=== PATIENT | female | born 1950 ===

== ENCOUNTER 2018-08-26 07:15 | Inpatient (IN) | payer OTHER, MEDICAID ==
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
[~2018-08-26 07:15] MED LIST: TRANEXAMIC ACID 1,000 MG in NS 100 ML IV ONE
[2018-08-26] MEDS ORDERED: ceFAZolin 2 GM/DEXTROSE 100 ML IV ONE (07:34)
[2018-08-26] MEDS ORDERED: fentaNYL 50 MCG in SYRINGE INTRATHECAL 1 SYR IT ONE (07:34)
[2018-08-26] MEDS ORDERED: GABAPENTIN 300 MG CAP PO ONE (07:34)
[2018-08-26] MEDS ORDERED: ACETAMINOPHEN 500 MG TAB PO ONE (07:34)
[2018-08-26] MEDS ORDERED: morphINE PF 0.2 MG in SYRINGE INTRATHECAL 1 SYR IT ONE (07:34)
[2018-08-26] MEDS ORDERED: LR 1,000 ML IV ONE (07:39)
[2018-08-26 08:37] LABS: PLATELET COUNT 154 10^3/uL (150-400)
[2018-08-26] MEDS ORDERED: CHLORHEXIDINE GLUC HIBICLENS 118 ML BTL TP ONE (09:26)
[2018-08-26] MEDS ORDERED: BACITRACIN 50,000 UNITS/10 ML SYR IRR ONE (09:27)
[2018-08-26] MEDS ORDERED: EPINEPHrine 1 MG/ML INJ ONE (09:27)
[2018-08-26] MEDS ORDERED: BUPIVACAINE 0.25% 30 ML SDV ONE (09:27)
--- NOTE | 2018-08-26 09:34 | PDHPUP ---
History & Physical Update H&P update statement: This history and physical update is based on an assessment of the patient which was completed after admission or registration (within 24 hours), but prior to the surgery/procedure. H&P update: H&P reviewed & patient examined, no change in patient's condition since H&P completed
[2018-08-26] MEDS ORDERED: PROPOFOL/EMULSION 500 MG/50 ML BOTTLE IV ONE ×2 (09:59→12:30)
[2018-08-26] MEDS ORDERED: fentaNYL 250 MCG/5 ML INJ ONE (09:59)
[2018-08-26] MEDS ORDERED: PROPOFOL 200 MG/20 ML VIAL ONE (09:59)
[2018-08-26] MEDS ORDERED: REMIFENTANIL HCL 1 MG VIAL ONE ×2 (09:59→12:30)
[2018-08-26] MEDS ORDERED: METOPROLOL TARTRATE 5 MG/5 ML INJ ONE (10:03)
[2018-08-26] MEDS ORDERED: THROMBIN (BOVINE) 20,000 UNIT VIAL TP ONE ×2 (10:23→10:26)
[2018-08-26] MEDS ORDERED: DEXAMETHASONE 4 MG/ML VIAL ONE ×3 (10:29)
[2018-08-26] MEDS ORDERED: PHENYLEPHRINE 10 MG/ML SDV ONE (10:55)
[2018-08-26] MEDS ORDERED: fentaNYL 100 MCG/2 ML INJ IVP PRN (12:27)
[2018-08-26] MEDS ORDERED: MEPERIDINE 25 MG/0.5 ML AMP IVP PRN (12:27)
[2018-08-26] MEDS ORDERED: PROMETHAZINE HCL 25 MG/ML INJ IVP PRN (12:27)
[2018-08-26] MEDS ORDERED: DIAZEPAM 5 MG/ML 1 ML SYR IVP PRN (12:27)
[2018-08-26] MEDS ORDERED: LR 500 ML IV PRN (12:27)
[2018-08-26] MEDS ORDERED: ONDANSETRON 4 MG/2 ML VIAL IVP PRN ×2 (12:27→12:56)
[2018-08-26] MEDS ORDERED: LABETALOL HCL 5 MG/ML 20 ML MDV IVP PRN (12:27)
[2018-08-26] MEDS ORDERED: HYDROmorphONE/DILAUDID 2 MG/ML INJ IVP PRN (12:27)
[2018-08-26] MEDS ORDERED: NALOXONE HCL 0.4 MG/ML INJ IVP PRN (12:27)
[2018-08-26] MEDS ORDERED: ALBUTEROL 3 ML DEYVIAL IH PRN (12:27)
[2018-08-26] MEDS ORDERED: METOCLOPRAMIDE 10 MG/2 ML VIAL IVP PRN (12:27)
[2018-08-26] MEDS ORDERED: ONDANSETRON 4 MG/2 ML VIAL ONE (12:38)
[2018-08-26] MEDS ORDERED: HYOSCYAMINE SULFATE 0.125 MG TAB PO PRN ×2 (12:55→15:35)
[2018-08-26] MEDS ORDERED: MAGNESIUM HYDROXIDE 30 ML UDCUP PO PRN (12:56)
[2018-08-26] MEDS ORDERED: ONDANSETRON DISINTEGRATING 4 MG TAB PO PRN (12:56)
[2018-08-26] MEDS ORDERED: BISACODYL 10 MG SUPP PR PRN (12:56)
[2018-08-26] MEDS ORDERED: diphenhydrAMINE 25 MG CAP PO PRN (12:56)
[2018-08-26] MEDS ORDERED: LACTULOSE 20 GM/30 ML UDCUP PO PRN (12:56)
[2018-08-26] MEDS ORDERED: NS 1,000 ML IV SCH (13:00)
--- NOTE | 2018-08-26 13:02 | SOAPPROG ---
SOAP Progress Note Assessment/Plan: Assessment: 68 yo F sp L4/5 TLIF Plan: stable to 3N PT/OT irving to fit LSO brace URBAN x 1 please call with neuro changes 08/26/18 13:01 Subjective: + back pain, no leg pain. Objective: Vital Signs Temp Pulse Resp BP Pulse Ox 37.0 C 80 16 125/63 H 93 08/26/18 07:59 08/26/18 07:59 08/26/18 07:59 08/26/18 07:59 08/26/18 07:59 Laboratory Results 08/26/18 08:30 somnolent PERRL, EOMI BILL x4 + light touch ICD10 Worksheet Patient Problems: Problems Problem Status Onset Fusion of spine of lumbar region Acute - ICD10 Problem Qualifiers (1) Fusion of spine of lumbar region
--- NOTE | 2018-08-26 13:19 | GOP ---
[f rep st] OPERATIVE REPORT DATE OF OPERATION: 08/26/2018 SURGEON: Js Martin MD NEUROSURGEON: Js Martin MD TUNNEL KILN OPERATOR: ROMEL Devine ANESTHESIA: General endotracheal. PREOPERATIVE DIAGNOSIS: Critical spinal stenosis and lateral recess impingement with severe degenera tive scoliosis with spinal stenosis. Intractable low back pain and right lower extremity radiculopat hy. Intractable neurogenic claudication. Failed conservative care. Obesity. POSTOPERATIVE DIAGNOSIS: Critical spinal stenosis and lateral recess impingement with severe degener ative scoliosis with spinal stenosis. Intractable low back pain and right lower extremity radiculopa thy. Intractable neurogenic claudication. Failed conservative care. Obesity. PROCEDURE PERFORMED: Mini open exposure for right-sided far lateral transpedicular decompression at the L4-5 level with posterior nonsegmental (pedicle screw and axle device) fixation and posterolatera l fusion with local autograft, bone morphogenic protein, and morselized allograft. L4-5 posterior/tr ansforaminal lumbar interbody fusion with 2 structural PEEK interbody spacers, local autograft, and b one morphogenic protein. Use of intraoperative microscopy, fluoroscopy and computer volumetric stere otactic navigation with intraoperative neurophysiologic testing. Injection of intrathecal narcotic a nalgesics. FINDINGS: ESTIMATED BLOOD LOSS: 75 cc. INDICATIONS: The patient is a 68-year-old, obese woman with intractable low back pain and right lowe r extremity radicular and neurogenic claudication symptoms, secondary to severe degenerative scoliosi s with critical spinal stenosis and lateral recess impingement. She has failed extensive period of c onservative care and presents now for surgical decompression and stabilization through a mini open ap proach. DESCRIPTION OF PROCEDURE: After informed consent was obtained, the patient was taken to the operatin g room and placed in the prone position on Yury table. The lumbosacral area was prepped and drape d in a sterile fashion, and after fluoroscopic localization of the correct levels, the subcutaneous a nd intramuscular tissues were infiltrated with local anesthesia. A midline linear incision was then created over the L4-5 spinous processes. This was carried down th e fascial layer, which was incised using monopolar electrocautery and carried to the subfascial plane along the spinous processes and lamina bilaterally. Intraoperative fluoroscopy was utilized to veri fy the correct level. Note that the anatomy was extremely distorted due to the very severe arthritic changes and it took multiple x-rays and angles in order to verify the correct level. Following this, the microscope was brought in and left-sided far lateral transpedicular decompression was performed with complete unroofing of the facet joint and neural foramina at L4 and L5, as well a s the central canal. Following adequate decompression of the left sided lateral recess, neural ghulam en and central canal, as well as the right side of the central canal. The [place] neuronavigational system was brought in and using computer volumetric stereotactic navigation, pedicle screws were plac ed at the left L4 and L5 levels. Each individual screw was tested neurophysiologically with monopola r electrostimulation and interpretation of the potentials by the surgeon. A jeromy was then placed and secured under distraction, during which time, a complete diskectomy was performed with preparation of the endplates and placement of 2 structural PEEK interbody spacers with local autograft and bone mor phogenic protein for an L4-5 posterior/transforaminal lumbar interbody fusion. The screw and jeromy sys tem were then placed in a slight amount of compression in order to facilitate bony union and to minim ize the potential for posterior graft migration. An axial device was then placed in lieu of right-si ded pedicle screws in order to maximize the bony surface area for the posterolateral fusion and minim ize the additional risks associated with pedicle screws on that side. Following this, the remaining laminae and facet joints were extensively decorticated on the right and the residual local autograft from the facetectomy, along with the bone morphogenic protein and muller lized allograft was placed out laterally for posterolateral fusion at the L4-5 level. 200 mcg of Dur amorph, along with 50 mcg of fentanyl were injected intrathecally at the L3-4 level for postoperative pain control. The subcutaneous and intramuscular tissues were re-infiltrated with local anesthesia. A drain was placed. The wound was closed in a layered fashion using interrupted Vicryl sutures, fo llowed by Steri-Strips on the skin. COMPLICATIONS: None. DISPOSITION: The patient is currently in the process of being repositioned for extubation.. /[id number]/MODL
[2018-08-26] MEDS ORDERED: HYDROmorphONE/DILAUDID 2 MG/ML INJ ONE (13:44)
[2018-08-26] MEDS ORDERED: METOPROLOL TARTRATE 25 MG TAB PO SCH (16:00)
[2018-08-26] MEDS: POLYETHYLENE GLYCOL 3350 17 GM PKT PO SCH ×2 (16:00→21:19)
[2018-08-26] MEDS: oxyCODONE IR 5 MG TAB PO PRN (16:25)
[2018-08-26] MEDS: ceFAZolin 2 GM/DEXTROSE 100 ML IV SCH ×2 (16:25→21:20)
--- NOTE | 2018-08-26 20:00 | PDMN ---
Medical Necessity Medical necessity: Pt meets IP criteria as of 08/26/2018 per and [facility] S-820 ( Lumbar Fusion); Medicare IP only procedure
[2018-08-26] MEDS: FAMOTIDINE 20 MG TAB PO SCH (21:19)
[2018-08-26] MEDS: SENNOSIDES/DOCUSATE SODIUM TAB PO SCH (21:19)
[2018-08-26] MEDS: METOPROLOL TARTRATE 25 MG TAB PO SCH (21:20)
[2018-08-27] MEDS: METHOCARBAMOL 750 MG TAB PO PRN ×4 (04:49→22:50)
[2018-08-27] MEDS: oxyCODONE IR 5 MG TAB PO PRN ×6 (04:50→22:50)
[2018-08-27 05:42] LABS: PLATELET COUNT 141 10^3/uL (150-400)
--- NOTE | 2018-08-27 06:51 | SOAPPROG ---
SOAP Progress Note Assessment/Plan: Assessment: 68 yo female POD #1 sp L4/5 TLIF. Complaining of right sided low back/flank muscular pain with movement. Plan: Continue URBAN drain PT/OT LSO when OOB xrays today to evaluate hardware Dr. Gastelum saw patient this AM Subjective: Awake, alert, pain controlled. Doing well overall. Denies new numbness, tingling or weakness Objective: Vital Signs Temp Pulse Resp BP Pulse Ox 36.6 C 80 16 145/69 H 96 08/27/18 04:39 08/27/18 04:39 08/27/18 04:39 08/27/18 04:39 08/27/18 04:39 Laboratory Results 08/27/18 04:36 08/27/18 04:36 08/26/18 08/27/18 08/28/18 05:59 05:59 05:59 Intake Total 1393 Output Total 1305 500 Balance 88 -500 Neuro: GARDNER, sens +Lt throughout Incision: CDI URBAN: 180 since surgery ICD10 Worksheet Patient Problems: Problems Problem Status Onset Fusion of spine of lumbar region Acute
[2018-08-27] MEDS: METOPROLOL TARTRATE 25 MG TAB PO SCH ×2 (08:20→20:52)
[2018-08-27] MEDS: POLYETHYLENE GLYCOL 3350 17 GM PKT PO SCH ×3 (08:20→20:51)
[2018-08-27] MEDS: ENOXAPARIN 40 MG/0.4 ML SYR SC SCH (08:20)
[2018-08-27] MEDS: FAMOTIDINE 20 MG TAB PO SCH ×2 (08:20→20:50)
[2018-08-27] MEDS: SENNOSIDES/DOCUSATE SODIUM TAB PO SCH ×2 (08:20→20:49)
[2018-08-27] MEDS: HYDROmorphONE/DILAUDID 1 MG/ML INJ IVP PRN ×4 (08:25→20:47)
[2018-08-28] MEDS: METHOCARBAMOL 750 MG TAB PO PRN ×2 (04:13→16:19)
[2018-08-28] MEDS: oxyCODONE IR 5 MG TAB PO PRN ×5 (04:14→19:27)
[2018-08-28] MEDS: METOPROLOL TARTRATE 25 MG TAB PO SCH ×2 (08:33→19:32)
[2018-08-28] MEDS: FAMOTIDINE 20 MG TAB PO SCH ×2 (08:33→19:32)
[2018-08-28] MEDS: ENOXAPARIN 40 MG/0.4 ML SYR SC SCH (08:34)
[2018-08-28] MEDS: SENNOSIDES/DOCUSATE SODIUM TAB PO SCH ×2 (08:34→19:29)
--- NOTE | 2018-08-28 08:39 | NEUSURGPN ---
Date of Surgery: 08/26/18 Post Op Day: 2 Assessment/Plan: 68 yo female POD #2 sp L4/5 TLIF Plan: - neuro stable - pain control - wear brace when out of bed - URBAN drain x 1 with 100 cc output in last 24 hours, continue drain - PT/OT - postop L-spine x-rays completed. Hardware in good placement - Dispo: home with homecare, possibly later today if pain adequately controlled Subjective: Having localized back pain. No LE pain. Objective: Awake. Alert PERRL. EOMI Facial expression symmetrical Muscle strength full at 5/5 Sensation intact Catheter Insertion Date: 08/26/18 - Physician Discussed Patient with : Veronica Neurosurgery Physical Exam - Vitals, I&O, Labs I and O 08/27/18 08/28/18 08/29/18 05:59 05:59 05:59 Intake Total 1393 1730 Output Total 1305 2100 Balance 88 -370 Weight 83.91 kg Intake: Oral (ml) 350 1730 IV Intake (ml) 93 IV Infused (ml) 950 Ns 1,000 ml @ 100 mls/hr 850 IV CONT SHIRA Rx#: [id number] ceFAZolin 2 GM/DEXTROSE 100 100 ml @ 200 mls/hr IV Q8HRS SHIRA Rx#:[id number] Output: Urine (ml) 1125 2000 Bedside Commode 300 Catheter 1125 500 Toilet 1200 URBAN Drain Output (ml) 180 100 Left Back Yury Le 180 100 Other: Intake Quantity Yes Yes Sufficient Output Comment Toilet missed hat unable to measure Number of Voids Toilet 1 Number of Stools Bedside Commode 1 Toilet 1 Vital Signs Temp Pulse Resp BP Pulse Ox 37.6 C 77 16 122/58 H 97 08/28/18 08:00 08/28/18 08:33 08/28/18 08:00 08/28/18 08:33 08/28/18 08:00 Laboratory Results 08/27/18 04:36 08/27/18 04:36 ICD10 Worksheet Patient Problems: Problems Problem Status Onset Fusion of spine of lumbar region Acute
[2018-08-28] MEDS: POLYETHYLENE GLYCOL 3350 17 GM PKT PO SCH ×3 (08:51→19:15)
--- NOTE | 2018-08-28 15:35 | ASMTCMCOM ---
CM Note CM Note Notes: Pt is s/p L4/5 TLIF. PT is recommending home care. Spoke with pt (interpreter deaf was present however pt understood what was being said) and she is interested in having HC when she discharges. She has no preference for a HC agency. A couple referrals were sent via [employer]. Pt lives in [place] and has a daughter who lives locally. CM will continue to follow for d/c needs. D/C Plan: Homecare Date Signed: 08/28/2018 03:35 PM Electronically Signed By:PRINCESS Villalobos
[2018-08-29] MEDS: METHOCARBAMOL 750 MG TAB PO PRN ×3 (03:49→20:33)
[2018-08-29] MEDS: oxyCODONE IR 5 MG TAB PO PRN ×4 (03:49→20:33)
--- NOTE | 2018-08-29 08:09 | NEUSURGPN ---
Date of Surgery: 08/26/18 Post Op Day: 3 Assessment/Plan: 68 yo female POD #3 sp L4/5 TLIF Plan: - neuro stable - pain control - wear brace when out of bed - URBAN drain x 1 - PT/OT - postop L-spine x-rays completed. Hardware in good placement - Dispo: home with homecare, plan to remove URBAN drain and home today Subjective: Having localized back pain. Objective: Awake. Alert. PERRL. EOMI Facial expression symmetrical Muscle strength full at 5/5 Sensation intact Catheter Insertion Date: 08/26/18 Neurosurgery Physical Exam - Vitals, I&O, Labs I and O 08/28/18 08/29/18 08/30/18 05:59 05:59 05:59 Intake Total 1730 500 Output Total 2100 2645 Balance -370 -2145 Intake: Oral (ml) 1730 500 Output: Urine (ml) 2000 2550 Bedside Commode 300 500 Catheter 500 Toilet 1200 2050 URBAN Drain Output (ml) 100 95 Left Back Yury Le 100 95 Other: Intake Quantity Yes Sufficient Output Comment Toilet missed hat unable to measure Number of Voids Bedside Commode 2 Toilet 1 1 1 Number of Stools Bedside Commode 1 Toilet 1 Vital Signs Temp Pulse Resp BP Pulse Ox 36.6 C 71 17 116/60 95 08/28/18 23:24 08/28/18 23:24 08/28/18 23:24 08/28/18 23:24 08/28/18 23:24 Laboratory Results 08/27/18 04:36 08/27/18 04:36 ICD10 Worksheet Patient Problems: Problems Problem Status Onset Fusion of spine of lumbar region Acute
[2018-08-29] MEDS: SENNOSIDES/DOCUSATE SODIUM TAB PO SCH ×2 (09:21→20:33)
[2018-08-29] MEDS: ENOXAPARIN 40 MG/0.4 ML SYR SC SCH (09:21)
[2018-08-29] MEDS: METOPROLOL TARTRATE 25 MG TAB PO SCH ×2 (09:21→20:34)
[2018-08-29] MEDS: FAMOTIDINE 20 MG TAB PO SCH ×2 (09:22→20:33)
[2018-08-29] MEDS: POLYETHYLENE GLYCOL 3350 17 GM PKT PO SCH ×3 (09:51→22:03)
--- NOTE | 2018-08-29 11:37 | PDIAF ---
- Diagnosis Diagnosis: Lumbar stenosis s/p fusion Code Status: Full Code - Medication Management Discharge Medications: electronically signed and located in the Home Medication List. - Orders Services needed: Home Care, Physical Therapy, Occupational Therapy Home Care Face to Face: I certify that this patient was under my care and that I had the required [id number] encounter meeting the encounter requirements on the discharge day. My findings support the fact that the patient is homebound as defined in Home Care Face to Face Continued: CMS Chapter 7 Medicare Benefits Manual 30.1.1 , The condition of the patient is such that there exists a normal inability to leave home and consequently, leaving home would require a considerable and taxing effort. Diet Recommendation: no restrictions on diet Diet Texture: Regular Texture Diet Wound Care Instructions: OK to shower and get incision wet. Be gentle. No scrubbing. Pat dry. Additional Instructions: 1. OK to shower and get incision wet, be gentle. No scrubbing. 2. Wear brace when out of bed. 3. Refrain from lifting more than 10 pounds and bending/twisting. 4. Follow up with Dr. Gastelum in 2 weeks. [phone] - Follow Up Care Current Providers and Referrals: CLARITA DU [Primary Care Provider] - Js Martin MD [Medical Doctor] - follow up in 2 weeks
--- NOTE | 2018-08-29 14:24 | ASMTCMCOM ---
CM Note CM Note Notes: Met with patient to review dc plan of care, She is agreeable to [facility]. Her daughter is to take her home. I confirmed her address and phone number. [facility] to [facility] up appointment, final orders in allscripts. CM available should other needs arise. Plan : Home with C Date Signed: 08/29/2018 02:24 PM Electronically Signed By:Alyce Quinones RN
--- NOTE | 2018-08-29 14:30 | ASMTLACE ---
LACE Length of stay for Answers: 3 days current admission Acuity / Level of Answers: Yes Care: Did the patient have an inpatient admission? Comorbidities - select Answers: Diabetes (uncontrolled or all that apply controlled) Opioid dependence / Chronic pain Other Notes: HTN # of Emergency department Answers: 0 visits in the last 6 months Score: 12 Date Signed: 08/29/2018 02:29 PM Electronically Signed By:Alyce Quinones RN
--- NOTE | 2018-08-30 07:30 | SOAPPROG ---
SOAP Progress Note Assessment/Plan: Assessment: 68 yo F POD #4 L4/5 TLIF Plan: stable and doing well overall :) post op x-rays look good PT/OT LSO brace when out of bed URBAN x 1, likely remove today please call with neuro changes likely dc to SNF or home with HHC today discussed with DR Song 08/26/18 13:01 08/30/18 07:28 Subjective: + back pain, no leg pain, no weakness. Objective: Vital Signs Temp Pulse Resp BP Pulse Ox 37.2 C 76 16 110/55 L 98 08/29/18 20:41 08/29/18 20:41 08/29/18 20:41 08/29/18 20:41 08/29/18 20:41 Laboratory Results 08/27/18 04:36 08/27/18 04:36 08/29/18 08/30/18 08/31/18 05:59 05:59 05:59 Intake Total 500 350 Output Total 2645 1680 300 Balance -2145 -1330 -300 AAOx4, +FC PERRL, EOMI, no facial droop 5/5 + light touch C/D/I ICD10 Worksheet Patient Problems: Problems Problem Status Onset Fusion of spine of lumbar region Acute - ICD10 Problem Qualifiers (1) Fusion of spine of lumbar region
[2018-08-30 07:55] VITALS: BP 122/60
[2018-08-30] MEDS: FAMOTIDINE 20 MG TAB PO SCH (08:11)
[2018-08-30] MEDS: oxyCODONE IR 5 MG TAB PO PRN ×3 (08:12→14:13)
[2018-08-30] MEDS: METOPROLOL TARTRATE 25 MG TAB PO SCH (08:12)
[2018-08-30] MEDS: SENNOSIDES/DOCUSATE SODIUM TAB PO SCH (08:14)
[2018-08-30] MEDS: ENOXAPARIN 40 MG/0.4 ML SYR SC SCH (08:15)
[2018-08-30] MEDS: POLYETHYLENE GLYCOL 3350 17 GM PKT PO SCH (08:15)
[2018-08-30] MEDS: METHOCARBAMOL 750 MG TAB PO PRN (11:02)
--- NOTE | 2018-08-30 14:09 | ASMTCMCOM ---
CM Note CM Note Notes: Pt medically stable for d/c with [facility] PT, referral sent in Allscripts and they have protocol with MD so no orders needed. Pt was pre-arranged with [facility] by MD office and wants [facility]. Pt has family assistance at home, this CM wrote her a letter for her housing so family can stay w her. Date Signed: 08/30/2018 02:08 PM Electronically Signed By:PRINCESS Hernandez
--- NOTE | 2018-08-31 16:18 | ASDISCHSUM ---
Discharge Information Plan Status:Home with Home Health Medically Cleared to Leave: Discharge Date:08/30/2018 04:46 PM CM D/C Disposition: ADT D/C Disposition:Home Health Service Projected Discharge Date:08/29/2018 11:00 AM Transportation at D/C: Discharge Delay Reason: Follow-Up Date:08/29/2018 11:00 AM Discharge Slot: Final Diagnosis: Placement Information Referral Type:*Home Health Care Services Referral ID:[id number] Provider Name:[facility] ([facility]) Address 1:[address] [address] Address 2: City:[place] Selection Factors: State:[place] Patient Contact Information Contact Name:ROXANNE Relationship:Daughter Address: Work Phone: City: [facility] Phone: [facility] Code: Email: Financial Information Financial Class:Medicare Primary Plan Desc:MEDICARE INPATIENT Primary Plan Number:[id number] Secondary Plan Desc:[place] Secondary Plan Number:[id number] Assessment Information LACE LACE Length of stay for Answers: 3 days current admission Acuity / Level of Answers: Yes Care: Did the patient have an inpatient admission? Comorbidities - select Answers: Diabetes (uncontrolled or all that apply controlled) Opioid dependence / Chronic pain Other Notes: HTN # of Emergency department Answers: 0 visits in the last 6 months Score: 12 Date Signed: 08/29/2018 02:29 PM Electronically Signed By:Alyce Quinones RN BC CM Progress Note CM Note CM Note Notes: Pt is s/p L4/5 TLIF. PT is recommending home care. Spoke with pt (freelance interpreter/translator was present however pt understood what was being said) and she is interested in having HC when she discharges. She has no preference for a HC agency. A couple referrals were sent via Allscripts. Pt lives in [place] and has a daughter who lives locally. CM will continue to follow for d/c needs. D/C Plan: Homecare Date Signed: 08/28/2018 03:35 PM Electronically Signed By:PRINCESS Villalobos [facility] CM Progress Note CM Note CM Note Notes: Met with patient to review dc plan of care, She is agreeable to [facility]. Her daughter is to take her home. I confirmed her address and phone number. [facility] will connect with her to set up appointment, final orders in allscripts. CM available should other needs arise. Plan : Home with [facility] Date Signed: 08/29/2018 02:24 PM Electronically Signed By:Alyce Quinones RN [facility] CM Progress Note CM Note CM Note Notes: Pt medically stable for d/c with [facility] PT, referral sent in Allscripts and they have protocol with MD so no orders needed. Pt was pre-arranged with [facility] by MD office and wants [facility]. Pt has family assistance at home, this CM wrote her a letter for her housing so family can stay w her. Date Signed: 08/30/2018 02:08 PM Electronically Signed By:PRINCESS Hernandez Intervention Information Intervention Type:*IM-Signed Date of Service:08/30/2018 01:55 PM Patient Type:Inpatient Staff Member:Randi Gill Hours: Discipline: Severity: Comment:
--- NOTE | 2018-09-01 14:14 | POSTANESTH ---
Post Anesthetic Evaluation Cardiovascular Status: Normal, Stable Respiratory Status: Normal, Stable Level of Consciousness/Mental Status: Can Participate in Eval Pain Control: Adequate, Prn Tx Ordered Nausea/Vomiting Control: Adequate, Prn Tx Ordered Complications Possibly Related to Anesthesia: None Noted
== END 2018-08-30 16:46 | disposition home health service (06) | DRG 455 ==
LOC: F3N 07:25
PROVIDERS: ADMIT Neurological Surgery; ATTEND Neurological Surgery
DX: M48.062 Spinal stenosis, lumbar region with neurogenic claudication (principal); M41.86 Other forms of scoliosis, lumbar region; M51.16 Intervertebral disc disorders with radiculopathy, lumbar region; E66.9 Obesity, unspecified; E78.00 Pure hypercholesterolemia, unspecified; I10 Essential (primary) hypertension
CPT/HCPCS: 97116-GP; 97161-GP; 97166-GO; 97530-GP; 97535-GO; C1713; C1762; J0171; J0690; J1100; J1170; J1650; J2274; J2370; J2405; J2704; J3010